=== PATIENT | female | born 1950 | race Caucasian/White ===

== ENCOUNTER 2017-02-02 12:06 | Emergency (ER) | payer MEDICARE, BC ==
[~2017-02-02] VITALS: Ht 162.6 cm; Wt 49.9 kg
[~2017-02-02 12:06] MED LIST: LEVAQUIN750 MG ORAL; LISINOPRIL20 MG ORAL; NORCO 5-325 TA1 EAC1 ORAL
--- NOTE | 2017-02-02 12:39 | Emergency Room Report ---
History of Present Illness General Chief Complaint: Lower Extremity Injury Source: Patient, Medical Record Present Illness HPI The patient is a 66-year-old female presenting with pain to the right foot. She states that she struck a piece of furniture with her foot last night. Pain is a 8/10 dull ache and does not radiate. Worse with walking.She denies any radiating pain. She denies numbness/tingling. She has not taken any medications as she does not like to use them.She has noticed bruising to the area. She denies any other injury. She denies hitting her head or loss of consciousness Allergies: Coded Allergies: NO KNOWN ALLERGIES (Unverified Allergy, Unknown, 06/15/15) Patient History Past Medical History: see triage record Pertinent Family History: none Reviewed Nursing Documentation: PMH: Agreed, PSxH: Agreed Nursing Documentation-PMH Past Medical History: No History, Except For Hx Hypertension: Yes Review of Systems All Other Systems: negative except mentioned in HPI Physical Exam Vital Signs Date Time Temp Pulse Resp B/P Pulse Ox O2 Delivery O2 Flow Rate FiO2 02/02/17 12:25 97.3 87 19 128/80 99 Room Air Sp02 EP Interpretation: reviewed, normal General Appearance: no apparent distress, alert, GCS 15, non-toxic Head: normocephalic, atraumatic Eyes: bilateral eye PERRL, bilateral eye normal inspection ENT: hearing grossly normal, normal pharynx, no angioedema, normal voice Neck: full range of motion, supple/symm/no masses Respiratory: chest non-tender, lungs clear, normal breath sounds, speaking full sentences Musculoskeletal: normal range of motion, tender - TTP over the R 1st digit and across all distal metatarsals Neurologic: alert, oriented x3, responsive, motor strength/tone normal, sensory intact, speech normal Psychiatric: judgement/insight normal, memory normal, mood/affect normal, no suicidal/homicidal ideation Skin: other - ecchymosis across R metatarsals Lymphatic: no adenopathy Procedures Splinting Splinting : Consent: Verbal Location: R leg Hand-Made Type: plaster Splint: poserior short Pre-Proc Neuro Vasc Exam: normal Post-Proc Neuro Vasc Exam: normal Patient Tolerated: Well Complications: None Medical Decision Making PA Attestation Dr. Jonas is my supervising physician. Patient management was discussed with my supervising physician Diagnostic Impression: Primary Impression: Foot pain, right ER Course The patient is a 66-year-old female presenting with pain to the right foot. The patient declined any pain medications Ddx considered include but not limited to sprain/strain, fracture, contusion PE: R foot shows ecchymosis and TTP across metatarsals. Full AROM. No edema X-ray of the ankle and foot are both unremarkable Most likely contusion. R leg splint is placed and patient is provided crutches. She will FU with PMD. RODRIGUEZ instructions given Other X-Ray Diagnostic Results Other X-Ray Diagnostic Results #1: X-Ray ordered: R foot # of Views/Limited Vs Complete: 3 View Indication: Pain EP Interpretation: Yes Interpretation: no dislocation, no soft tissue swelling, no fractures Impression: No acute disease Interpreting ER Provider: Dr. Pritesh Tom Text I am acting as scribe for my supervising physician. My supervising physician's interpretation of the R foot xrays are there are no fractures, dislocations or soft tissue swelling. Other X-Ray Diagnostic Results #2: X-Ray ordered: R ankle # of Views/Limited Vs Complete: 3 View Indication: Pain EP Interpretation: Yes Interpretation: no dislocation, no soft tissue swelling, no fractures Impression: No acute disease Interpreting ER Provider: Dr. Pritesh Tom Text I am acting as scribe for my supervising physician. My supervising physician's interpretation of the R ankle xrays are there are no fractures, dislocations or soft tissue swelling. Last Vital Signs Date Time Temp Pulse Resp B/P Pulse Ox O2 Delivery O2 Flow Rate FiO2 02/02/17 12:25 97.3 87 19 128/80 99 Room Air Status: improved Disposition: HOME, SELF-CARE Condition: Improved Scripts Ibuprofen* (MOTRIN*) 600 Mg Tablet 600 MG ORAL Q8H Y for For Pain, #30 TAB 0 Refills Prov: REID ALMONTE 02/02/17 REID ALMONTE Feb 02, 2017 12:39
--- NOTE | 2017-02-02 14:12 | Diagnostic Imaging Report ---
Indication: Pain Comparison: None Findings: 3 views of the right foot were obtained. There is narrowing of the first MTP joint with osteophyte formation. There is no fracture. Soft tissue swelling is present. No malalignment seen. Impression: No acute injury
--- NOTE | 2017-02-02 14:13 | Diagnostic Imaging Report ---
Indication: Pain right ankle Comparison: None Findings: 3 views of the right ankle obtained. No acute fracture, malalignment, periostitis, or osteochondral defects are identified. Soft tissues are unremarkable. Impression: Negative examination
[2017-02-02] MEDS ORDERED: IBUPROFEN600 MG ORAL (14:36)
[2017-02-02 16:00] VITALS: BP 156/86
== END 2017-02-02 16:00 | disposition home or self-care (01) ==
LOC: EMR 12:42
DX: S90.31XA Contusion of right foot, initial encounter (principal); W22.03XA Walked into furniture, initial encounter; Y92.9 Unspecified place or not applicable; I10 Essential (primary) hypertension
CPT/HCPCS: 29515; 99284